=== PATIENT | male | born 1980 | race Two or more races ===

== ENCOUNTER 2016-11-21 15:04 | Emergency (ER) | payer SELFPAY ==
[~2016-11-21] VITALS: Ht 167.6 cm; Wt 79.4 kg
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
[2016-11-21] MEDS ORDERED: HYDROCODONE/APAP 5/325MG 1 EACH TABLET ONE (15:25)
[2016-11-21] MEDS ORDERED: TDAP [DIPH/PERTUSSIS/TET] 0.5 ML VIAL IM ONE ×2 (15:25→15:30)
[2016-11-21] MEDS ORDERED: HYDROCODONE/APAP 5/325MG 1 EACH TABLET PO ONE (15:30)
--- NOTE | 2016-11-21 15:40 | NUR ---
PT MEDICATED ORDERED.
--- NOTE | 2016-11-21 16:40 | NUR ---
IV removed. Catheter intact and site benign. Pressure and 4x4 applied to site. No bleeding noted.
--- NOTE | 2016-11-21 16:58 | NUR ---
Patient discharged to home in stable condition. Written and verbal after care instructions given. Patient verbalizes understanding of instruction.
[2016-11-21 16:59] VITALS: BP 115/81
== END 2016-11-21 17:25 | disposition home or self-care (01) ==
LOC: ER 15:06
DX: S40.012A Contusion of left shoulder, initial encounter (principal); W22.8XXA Striking against or struck by other objects, initial encounter; Y93.55 Activity, bike riding; Y92.89 Other specified places as the place of occurrence of the external cause; Y99.8 Other external cause status
CPT/HCPCS: 71010; 73030; 73060; 90471; 90715; 99284; A4606; A6402; Z7610

== ENCOUNTER 2021-05-31 07:11 | Emergency (ER) | payer BC ==
[~2021-05-31] VITALS: Ht 167.6 cm; Wt 81.6 kg
--- NOTE | 2021-05-31 07:28 | NUR ---
SENT TO ER BED 9. BIBSELF C/O EPIGASTRIC PAIN SINCE LAST NIGHT. PAIN IS CURRENTLY A 2/10. THE PAIN COMES AND GOES. VITALS ARE WITHIN NORMAL LIMITS. BREATHING IS EVEN AND UNLABORED ON ROOM AIR. DR RODRIGUEZ AT BEDSIDE.
[2021-05-31] MEDS ORDERED: FAMOTIDINE (20 MG) 20 MG TABLET ONE (07:55)
[2021-05-31] MEDS ORDERED: FAMOTIDINE (20 MG) 20 MG TABLET PO ONE (08:00)
[2021-05-31 08:24] LABS: CALCIUM, SERUM 9.1 mg/dL (8.5-10.1); CREATININE 0.9 mg/dL (0.6-1.3); POTASSIUM 3.7 mmol/L (3.5-5.1)
--- NOTE | 2021-05-31 08:29 | NUR ---
ULTRASOUND AT BEDSIDE
[2021-05-31 08:32] LABS: ALBUMIN 4.1 g/dL (3.4-5.0); BILIRUBIN,DIRECT 0.1 mg/dL (0.0-0.2); BILIRUBIN,TOTAL 0.5 mg/dL (0.2-1.0); TOTAL PROTEIN, SERUM 7.7 g/dL (6.4-8.2)
[2021-05-31 08:40] LABS: BASOPHILS % (AUTO) 0.7 % (0.0-2.0); EOSINOPHILS % (AUTO) 1.4 % (0.0-6.0); HEMATOCRIT 42 % (39-51); HEMOGLOBIN 14.3 g/dL (13.5-17.5); LYMPHOCYTES # (AUTO) 1.5 K/uL (0.8-4.8); LYMPHOCYTES % (AUTO) 27.2 % (20.0-44.0); MEAN CORPUSCULAR HGB CONC 34 g/dl (31.0-36.0); MEAN CORPUSCULAR VOLUME 87 fL (80-96); MONOCYTES # (AUTO) 0.4 K/uL (0.1-1.30); MONOCYTES % (AUTO) 6.7 % (2.0-12.0); NEUTROPHILS # (AUTO) 3.5 K/uL (1.8-8.9); PLATELET COUNT (AUTO) 181 K/uL (150-450); RED BLOOD CELL COUNT(AUTO) 4.87 MIL/uL (4.5-6.0); WHITE BLOOD COUNT (AUTO) 5.4 K/uL (4.3-11.0)
[2021-05-31] MEDS ORDERED: ACETAMINOPHEN ES 500 MG TABLET ONE (09:45)
[2021-05-31] MEDS ORDERED: ACETAMINOPHEN ES 500 MG TABLET PO ONE (10:00)
[2021-05-31 10:46] LABS: BILIRUBIN,URINE NEGATIVE (NEGATIVE); COLOR,URINE YELLOW (YELLOW); LEUKOCYTE ESTERASE ,URINE NEGATIVE (NEGATIVE); NITRITE, URINE NEGATIVE (NEGATIVE); PH,URINE 5.5 (5.0-8.0); PROTEIN,URINE NEGATIVE (NEGATIVE); UGLUCOSE NEGATIVE (NEGATIVE); UROBILINOGEN,URINE 0.2 EU/dL (0.2)
[2021-05-31 10:52] LABS: BACTERIA,URINE None seen /HPF (None Seen); RBC,URINE NONE SEEN /HPF (0-2); WBC,URINE NONE SEEN /HPF (0-3)
[2021-05-31 10:53] LABS: SQUAMOUS EPITHELIAL CELL,UR Rare /HPF (None Seen)
[2021-05-31] MEDS ORDERED: FAMO-131 PO (11:18)
--- NOTE | 2021-05-31 11:38 | NUR ---
Patient discharged to home in stable condition. Written and verbal after care instructions given. Patient verbalizes understanding of instruction.
[2021-05-31 11:39] VITALS: BP 121/75
== END 2021-05-31 11:39 | disposition home or self-care (01) ==
LOC: ER 07:23
DX: R10.13 Epigastric pain (principal); Z79.1 Long term (current) use of non-steroidal anti-inflammatories (NSAID)
CPT/HCPCS: 36415; 76705-TC; 80048-TC; 80076-TC; 81001; 83690-TC; 85025-TC